=== PATIENT | male | born 1965 | race Caucasian/White ===

== ENCOUNTER 2024-07-20 04:28 | Emergency (ER) | payer OTHER, SELFPAY ==
[2024-07-20] VITALS (7 sets, daily range): BP systolic 123–164; BP diastolic 77–87; PULSE 68–91; RESP 14–20; TEMP 36.6–36.8; O2SAT 98–99; BMI 27.6
--- NOTE | 2024-07-20 04:37 | EKG_ITS ---
[facility] [address] [place] [address] Test Date: 2024-07-20 Pat Name: Rex Coy Department: [facility] Room: Gender: Male Classifier Tender: TAWANNA SALGADO : 1965 Requested By: Order Number: [id number] Reading MD: Ramana Diallo MD Measurements Intervals [place] Rate: 81 P: 65 TN: 206 QRS: -46 QRSD: 158 T: 38 QT: 416 QTc: 483 Interpretive Statements Normal sinus rhythm Left axis deviation Nonspecific intraventricular block NO PRIOR TRACING Electronically Signed On 07-20-2024 7:41:08 PST by Ramana Diallo MD
--- NOTE | 2024-07-20 04:45 | ED.ABDPAIN ---
HPI - Abdominal Pain General Chief Complaint: Abdominal Pain Stated Complaint: abd pain, doctor sent him in Time Seen by Provider: 07/20/24 04:32 History of Present Illness HPI narrative: 58-year-old male has been visiting [facility] away from his home [facility] with 1-1/2 weeks of upper abdominal discomfort, previous nonbloody emesis that seems to have been resolved, no longer having nausea, abdominal pain in fact seems to be improved, had telemedicine consultation with his primary care provider yesterday who encouraged him to come to the emergency department with the ongoing abdominal pain for an examination, yesterday he felt like it was too busy to wait 4 hours to be seen in decided come here in the middle of the night to be seen. He currently does not seem to have abdominal pain, in his nausea is resolved. He does not feel feverish. He has not endorse symptoms of diarrhea, painful urination, frequent urination, change in his chronic smoker's cough, shortness of breath, chest discomfort. Related Data Allergies Allergy/AdvReac Type Severity Reaction Status Date / Time No Known Drug Allergies Allergy Verified 07/20/24 07:10 Patient History Social History Smoking Status: Current every day smoker Exam Narrative Exam Narrative: GENERAL: Well-developed patient, in mild distress. HEAD: Atraumatic. Normocephalic. EYES: Pupils equal round and reactive. Extraocular motions intact. No scleral icterus. No injection or drainage. ENT: Nose without bleeding, purulent drainage. Throat without erythema, tonsillar hypertrophy or exudate. Airway patent. NECK: Trachea midline. Non tender CARDIOVASCULAR: Regular rate and rhythm without murmurs, gallops, or rubs. RESPIRATORY: Clear to auscultation. Breath sounds equal bilaterally. No wheezes, rales, or rhonchi. GASTROINTESTINAL: Abdomen soft, non-tender, nondistended. EXTREMITIES: No edema or joint tenderness. BACK: Nontender without deformity or crepitance. No flank tenderness. NEURO: AOx3. Motor functions grossly nonfocal SKIN: No rash or erythema of visible areas Initial Vital Signs Initial Vital Signs: Vital Signs Pulse Rate 91 H 07/20/24 04:41 Pulse Oximetry 99 07/20/24 04:41 Course Orders Ordered: ED Orders 07/20/24 04:37 EKG-12 Lead Stat 07/20/24 04:44 Complete Blood Count AUTO DIFF Stat Comprehensive Metabolic Panel Stat Lipase Stat 07/20/24 05:24 CT abdomen pelvis w con Stat Vital Signs Vital signs: Vital Signs - 8 hr 07/20/24 04:41 07/20/24 04:44 07/20/24 05:00 Temperature 98.3 F Pulse Rate 91 H 80 73 Respiratory Rate 16 14 Blood Pressure 164/87 H Pulse Oximetry 99 98 98 Oxygen Delivery Method Room Air 07/20/24 05:30 07/20/24 06:06 07/20/24 06:30 Temperature Pulse Rate 68 71 74 Respiratory Rate 14 17 18 Blood Pressure Pulse Oximetry 98 99 99 Oxygen Delivery Method MDM - Abdominal Pain Lab Data Attestation: I reviewed the patient's lab results. Lab results narrative: White blood cell count 14563 100, hemoglobin 14.3, platelets adequate. Basic metabolic panel unremarkable. 07/20/24 04:44 07/20/24 04:44 Labs: Lab Results 07/20/24 Range/Units 04:44 WBC 10.1 (4.5-11.0) X10^3/uL RBC 4.85 (4.5-5.9) X10^6/uL Hgb 14.3 (13.5-17.5) g/dL Hct 42.1 (41-53) % MCV 86.7 (80-100) fL MCH 29.4 (26-34) PG MCHC 33.9 (30-36) % RDW 13.3 (11.6-14.8) % Plt Count 369 (150-400) X10^3/uL Neut % (Auto) 54.7 (50-75) % Lymph % (Auto) 26.8 (25-40) % Branch % (Auto) 13.1 (3-14) % Eos % (Auto) 4.6 H (2-4) % Baso % (Auto) 0.8 (0-2) % Neut # (Auto) 5500 (2536-0188) /uL Lymph # (Auto) 2700 (6274-9334) /uL Branch # (Auto) 1300 H (0-900) /uL Eos # (Auto) 500 H (0-450) /uL Baso # (Auto) 100 (0-100) /uL Sodium 136 L (137-145) mmol/L Potassium 4.0 (3.4-5.1) mmol/L Chloride 102 (98-107) mmol/L Carbon Dioxide 26 (22-32) mmol/L BUN 20 (9-20) mg/dL Creatinine 0.95 (0.66-1.25) mg/dL Estimated GFR > 60 (>60) mL/min BUN/Creatinine Ratio 21.1 (6-22) Glucose 117 H (70-100) mg/dL Calcium 9.4 (8.4-10.2) mg/dL Total Bilirubin 0.3 (0.2-1.3) mg/dL AST 26 (17-59) IU/L ALT 22 (<50) IU/L Alkaline Phosphatase 76 (38-126) U/L Total Protein 7.7 (6.3-8.2) g/dL Albumin 4.4 (3.5-5.0) g/dL Globulin 3.3 (1.7-4.1) g/dL Albumin/Globulin Ratio 1.3 (1.0-2.8) Lipase 697 H (23-300) U/L Point of care testing: Urine Dip Bedside Urine Glucose Negative Bedside Urine Bilirubin - Negative Bedside Urine Ketone - Negative Urine Specific [place] 1.015 Bedside Urine Occult Blood - Negative Bedside Urine pH 6 Bedside Urine Protein - Negative Bedside Urine Urobilinogen - Negative Bedside Urine Nitrite - Negative Bedside Urine Leukocytes - Negative Esterase ECG Data Attestation: I personally reviewed and interpreted this ECG as follows: Interpretation: Normal sinus rhythm with rate 81, no obvious ST segment elevation or depression changes. FL 206, QRS 158, QTC 483. [facility] Narrative Medical decision making narrative: 58-year-old with recent abdominal pain that had generally been resolving and improving, referred by PCP for evaluation. No significant tenderness on nondistended abdomen. Screening labs showed increased lipase. We discussed imaging, patient would like to proceed with imaging. CT abdomen and pelvis ordered. CT abdomen and pelvis with IV contrast. Impressions: ?No evidence of colitis diverticulitis bowel obstruction obstructive uropathy or acute appendicitis.. Pancreas normal. See teleradiology report. Discussed CT report findings. Advised to continue OTC antacid, follow-up with PCP for scheduling of upper endoscopy as planned. Return precautions discussed. DC home. 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 We discussed imaging, you wanted to proceed. CT abdomen and pelvis was therefore performed. CT showed no acute changes, and the pancreas gland from which lipase is usually derived was also normal. No acute changes to explain your recent symptoms. You mentioned that you would be scheduled for upper endoscopy through your regular primary care provider. Continue taking [id number] antacid anna. Follow up with your primary care provider for coordination of endoscopy as planned. Return earlier to this/nearest emergency department for any change worsening symptoms or any concerns prior. Referrals: Marixa May PA-C [Primary Care Provider] - Stand Alone Forms: Patient Portal/API/Survey
[2024-07-20 04:53] LABS: Add Manual Diff / Slide Review NO; Basophils Absolute Auto 100 /uL (0-100); Basophils Percent Auto 0.8 % (0-2); Eosinophils Absolute Auto 500 /uL (0-450); Eosinophils Percent Auto 4.6 % (2-4); Hematocrit 42.1 % (41-53); Hemoglobin 14.3 g/dL (13.5-17.5); Lymphocytes Absolute Auto 2700 /uL (1100-4500); Lymphocytes Percent Auto 26.8 % (25-40); Mean Corpuscular HGB Conc 33.9 % (30-36); Mean Corpuscular Hemoglobin 29.4 PG (26-34); Mean Corpuscular Volume 86.7 fL (80-100); Monocytes Absolute Auto 1300 /uL (0-900); Monocytes Percent Auto 13.1 % (3-14); Neutrophils Absolute Auto 5500 /uL (1500-7000); Neutrophils Percent Auto 54.7 % (50-75); Platelet Count 369 X10^3/uL (150-400); Red Blood Cell Count 4.85 X10^6/uL (4.5-5.9); Red Cell Distribution Width 13.3 % (11.6-14.8); White Blood Cell Count 10.1 X10^3/uL (4.5-11.0)
[2024-07-20 05:05] LABS: Alanine Aminotransferase 22 IU/L (<50); Albumin 4.4 g/dL (3.5-5.0); Albumin Globulin Ratio 1.3 (1.0-2.8); Alkaline Phosphatase 76 U/L (38-126); Aspartate Aminotransferase 26 IU/L (17-59); BUN Creatinine Ratio 21.1 (6-22); Bilirubin Total 0.3 mg/dL (0.2-1.3); Blood Urea Nitrogen 20 mg/dL (9-20); Calcium 9.4 mg/dL (8.4-10.2); Carbon Dioxide 26 mmol/L (22-32); Chloride 102 mmol/L (98-107); Estimated Glomerular Filt Rate > 60 mL/min (>60); Globulin 3.3 g/dL (1.7-4.1); Glucose 117 mg/dL (70-100); HEMOLYSIS < 15 (0-50); Lipase 697 U/L (23-300); Sodium 136 mmol/L (137-145); Total Protein 7.7 g/dL (6.3-8.2)
--- NOTE | 2024-07-20 05:24 | DI.CT.S_ITS ---
PROCEDURE: CT ABDOMEN PELVIS W CON INDICATIONS: epig pain, elev Lipase TECHNIQUE: After the administration of intravenous contrast, axial sections acquired from the lung bases to the pubic symphysis. Coronal and sagittal reformats were performed. For radiation dose reduction, the following was used: automated exposure control, adjustment of mA and/or kV according to patient size. COMPARISON: None. FINDINGS: Image quality: Diagnostic. Lower Chest: No significant findings. ABDOMEN: Liver: No solid mass. Gallbladder: No radiopaque gallstones or wall thickening. Biliary ducts: No biliary dilation. Pancreas: A few coarse calcifications within the pancreas. There is mild edema within the pancreatic head. The pancreas demonstrates homogeneous enhancement. No ductal dilation. Spleen: Size is within normal limits. Adrenal Glands: 2.2 centimeter right adrenal nodule. Kidneys and Ureters: No hydronephrosis. No solid mass. No complex renal cystic lesion which requires follow up. Stomach and Bowel: Normal colonic caliber, without significant wall thickening. Peritoneum: No abnormal intraperitoneal fluid. No free air. Ventral Wall: No significant ventral hernia. Abdominal Nodes: No retroperitoneal or mesenteric adenopathy by size criteria. Vessels: Aorta and inferior vena cava are normal in size. PELVIS: Pelvic Organs: Unremarkable. Bladder: No bladder wall thickening, accounting for underdistention. Pelvic Nodes: No enlarged lymph nodes. Miscellaneous: No inguinal hernias are seen. Bones: No aggressive osseous abnormality. IMPRESSION: Mild pancreatic head edema, likely mild interstitial pancreatitis. No acute peripancreatic collection. No vascular complication. Coarse pancreatic calcifications, suggestive of chronic pancreatitis. 2.2 centimeter left adrenal nodule. Recommend dedicated CT or MRI for characterization (adrenal mass protocol). Findings discussed with Dr. Chew at time of dictation. Dictated by: Phillip Becker M.D. on 07/20/2024 at 9:10 Approved by: Phillip Becker M.D. on 07/20/2024 at 9:27
== END 2024-07-20 07:25 | disposition home or self-care (01) ==
PROVIDERS: Emergency Provider Emergency Medicine; PCP Physician Assistant
DX: R10.10 Upper abdominal pain, unspecified (principal); R74.8 Abnormal levels of other serum enzymes
CPT/HCPCS: 36415; 74177; 80053; 81003; 83690; 85025; 93005; 99283; 99284; Q9967